=== PATIENT | female | born 1985 | race African-American/Black ===

== ENCOUNTER 2022-05-19 14:21 | Emergency (ER) | payer OTHER ==
--- NOTE | 2022-05-19 17:05 | ER ---
Nurse's Notes [facility] Name: Ann Nava Age: 36 yrs Sex: Female : 1985 Arrival Date: 05/19/2022 Time: 14:24 Bed Waiting Private MD: Diagnosis: Coronavirus infection, unspecified Presentation: 05/19 15:25 Chief complaint: Patient states: cough, body aches and fever that began 3 days ago. ss Coronavirus screen: Client presents with at least one sign or symptom that may indicate coronavirus-19. Ebola Screen: Patient denies exposure to infectious person. Patient denies travel to an Ebola-affected area in the 21 days before illness onset. Initial Sepsis Screen: Does the patient meet any 2 criteria? No. Patient's initial sepsis screen is negative. Does the patient have a suspected source of infection? No. Patient's initial sepsis screen is negative. Risk Assessment: Do you want to hurt yourself or someone else? Patient reports no desire to harm self or others. Onset of symptoms was May 16, 2022. 15:25 Method Of Arrival: Ambulatory 15:25 Acuity: MANPREET 4 Historical: - Allergies: 15:26 No Known Allergies; ss - Immunization history:: Client reports receiving the 2nd dose of the Covid vaccine. - Social history:: Smoking status: Reported history of juuling and/or vaping. Screenin:10 Abuse screen: Denies threats or abuse. Denies injuries from another. Nutritional ld1 screening: No deficits noted. Tuberculosis screening: No symptoms or risk factors identified. Fall Risk None identified. Assessment: 17:10 Reassessment: See triage assessemnt. ld1 Vital Signs: 15:25 BP 126 / 56; Pulse 81; Resp 14; Temp 99.4(TE); Pulse Ox 100% on R/A; Weight 77.11 kg; ss Height 5 ft. 7 in. (170.18 cm); Pain 9/10; 15:25 Body Mass Index 26.63 (77.11 kg, 170.18 cm) ED Course: 14:24 Patient arrived in ED. rg4 14:38 Mil[facility] Ann FNP [facility]. jh7 14:38 Narayan Bhatia MD is Attending Physician. [facility] 15:26 Triage completed. 15:26 Arm band placed on right wrist. ss 17:10 Patient has correct armband on for positive identification. Placed in gown. Bed in low ld1 position. Call light in reach. Side rails up X2. line construction engineer on. Pulse ox on. NIBP on. Door closed. Noise minimized. 17:10 No provider procedures requiring assistance completed. Patient did not have IV access ld1 during this emergency room visit. Administered Medications: No medications were administered Medication: 17:10 VIS not applicable for this client. ld1 Outcome: 17:05 Discharge ordered by . carmen 17:10 Discharged to home ambulatory. ld1 17:10 Condition: stable 17:10 Discharge instructions given to patient, Instructed on discharge instructions, follow up and referral plans. medication usage, Demonstrated understanding of instructions, follow-up care, medications, Prescriptions given X 2. 17:11 Patient left the ED. ld1 Signatures: Vanessa House RN RN Inocencia Macdonald 4 Ban Carcamo RN RN ld1 Milana Ann, DIRECTOR HYDROGEN STORAGE ENGINEERING DIRECTOR HYDROGEN STORAGE ENGINEERING [facility] Corrections: (The following items were deleted from the chart) 15:27 15:26 Social history: Smoking status: Patient denies any tobacco usage or history of. ssss
--- NOTE | 2022-05-19 17:05 | EDPHYS ---
Physician Documentation [facility] Name: Ann Nava Age: 36 yrs Sex: Female : 1985 Arrival Date: 05/19/2022 Time: 14:24 Bed Waiting Private MD: ED Physician Narayan Bhatia Historical: - Allergies: 05/19 15:26 No Known Allergies; ss - Immunization history:: Client reports receiving the 2nd dose of the Covid vaccine. - Social history:: Smoking status: Reported history of juuling and/or vaping. Vital Signs: 15:25 BP 126 / 56; Pulse 81; Resp 14; Temp 99.4(TE); Pulse Ox 100% on R/A; Weight 77.11 kg; ss Height 5 ft. 7 in. (170.18 cm); Pain 9/10; 15:25 Body Mass Index 26.63 (77.11 kg, 170.18 cm) MDM: 17:05 Patient medically screened. [facility] 05/19 15:27 Order name: Flu; Complete Time: 16:05 05/19 15:27 Order name: COVID-19 SARS RT PCR (Document "Date of Onset" if Symptomatic) ss Administered Medications: No medications were administered Disposition Summary: 05/19/22 17:05 Discharge Ordered Location: Home [facility] Problem: new [facility] Symptoms: are unchanged [facility] Condition: Stable [facility] Diagnosis - Coronavirus infection, unspecified [facility] Followup: [facility] - With: Private Physician - When: 2 - 3 days - Reason: Recheck today's complaints Discharge Instructions: - Discharge Summary Sheet [facility] - COVID-19 [facility] - COVID-19 Frequently Asked Questions [facility] - 10 Things You Can Do to Manage Your COVID-19 Symptoms at Home - [place] [id number] Forms: - Medication Reconciliation Form [facility] - Thank You Letter [facility] Prescriptions: - Bromfed DM 2-30-10 mg/5 mL Oral syrup - take 10 milliliter by ORAL route every 4 hours; 240 milliliter; Refills: 0, [facility] Product Selection Permitted - ProAir HFA 90 mcg/actuation Inhalation HFA aerosol inhaler - inhale 2 puff by INHALATION route every 4-6 hours; 1 Inhaler; Refills: 0, [facility] Product Selection Permitted Signatures: Dispatcher [employer] Vanessa Mccray, PRISCILLA RN ss Milana Ann, DAYCARE WORKER DAYCARE WORKER jh7 Corrections: (The following items were deleted from the chart) 15:27 15:26 Social history: Smoking status: Patient denies any tobacco usage or history of. ssss
[2022-05-19 17:37] VITALS: BP 126/56; TEMP 99.4; O2SAT 100
== END 2022-05-19 17:11 | disposition home or self-care (01) ==
LOC: ER 14:21
DX: U07.1 COVID-19 (principal)
CPT/HCPCS: 87804 ×2; U0003